=== PATIENT | female | born 1995 | race Caucasian/White ===

== ENCOUNTER 2017-02-12 13:16 | Emergency (ER) | payer OTHER ==
[2017-02-12] MEDS ORDERED: Ondansetron INJ* 2 MG/ML VIAL IV ONE (16:48)
[2017-02-12] MEDS ORDERED: NS 0.9% 1000 ML* 1,000 ML IV ONE (16:48)
[2017-02-12] MEDS ORDERED: Ketorolac INJ* 30 MG/ML 1 ML VIAL IV ONE (16:48)
[2017-02-12] MEDS ORDERED: Morphine INJ* 4 MG/ML 1 ML CARPUJECT IV ONE ×2 (16:48→20:47)
[2017-02-12 17:19] LABS: Hematocrit 39 % (35-47); Hemoglobin 12.8 g/dl (12.0-16.0); Mean Corpuscular HGB Conc 33 g/dl (31-36); Mean Corpuscular Hemoglobin 28 pg (27-31); Mean Corpuscular Volume 83 fL (80-97); Mean Platelet Volume 7 um3 (7.4-10.4); Red Blood Count 4.67 10^6/ul (4.0-5.4); Red Cell Distribution Width 13 % (10.5-15); White Blood Count 9.6 10^3/ul (3.5-10.8)
[2017-02-12 17:33] LABS: ALT 15 U/L (7-52); AST 19 U/L (13-39); Albumin 4.3 g/dL (3.2-5.2); Alkaline Phosphatase 66 U/L (34-104); Anion Gap 7 mmol/L (2-11); BUN/Creatinine Ratio 23.2 (8-20); Blood Urea Nitrogen 13 mg/dL (6-24); C Reactive Protein 1.09 mg/L (< 5.00); CO2 Carbon Dioxide 26 mmol/L (22-32); Calcium 9.2 mg/dL (8.6-10.3); Chloride 103 mmol/L (101-111); EGFR African American 175.7 (>60); EGFR Non-African American 136.7 (>60); Globulin 2.8 g/dL (2-4); Glucose 86 mg/dL (70-100); Potassium 3.7 mmol/L (3.5-5.0); Sodium 136 mmol/L (133-145); Total Protein 7.1 g/dL (6.4-8.9)
[2017-02-12 19:07] LABS: Urine Bacteria Absent (Absent); Urine Bilirubin Negative (Negative); Urine Glucose Negative (Negative); Urine Nitrite Negative (Negative)
--- NOTE | 2017-02-12 20:16 | RAD ---
INDICATION: IUD string cannot be located during pelvic examination. COMPARISON: None. TECHNIQUE: Real-time transabdominal and transvaginal ultrasound examination of the female pelvis including grayscale and Doppler color flow imaging. FINDINGS: Uterus: The uterus is normal in size and echogenicity measuring 6.7 x 3.1 x 4.4 cm. The endometrial stripe is smooth and uniform measuring 4 mm in thickness. The intrauterine device appears to be appropriately located at the fundal height uterus. Ovaries: The right and left ovary measure 2.9 x 1.7 x 2.5 cm and 2.9 x 1.8 x 3.0 cm, respectively. Normal arterial and venous waveforms are identified. Appearance is within normal limits for the patient's age. There is small amount of free fluid in the cul-de-sac. IMPRESSION: Appropriately positioned fundal height intrauterine device according to sonographic criteria.
--- NOTE | 2017-02-12 21:45 | ED ---
Yudy Lofton Rebecca, scribed for Antonina Acevedo MD on 02/12/17 at 1631 . Abdominal Pain/Female - HPI Summary HPI Summary: Pt is a 21 y/o F who presents to ED c/o abdominal pain which she believes is related to her IUD. Pain has been present for 3-4 days and is in the suprapubic region. Pain is currently moderate, ranked 7/10. Sx aggravated by sex, alleviated by nothing. Denies vaginal discharge. Pt had the IUD placed about 1.5 years ago (October 2015) and has not experienced any problems with it. Pt feels positive that the IUD is causing pain. LNMP 2 weeks ago. - History of Current Complaint Chief Complaint: EDAbdPain Stated Complaint: IUD ISSUE Time Seen by Provider: 02/12/17 16:19 Hx Obtained From: Patient Hx Last Menstrual Period: ~07/28/14 Onset/Duration: Lasting Days - 3-4 days, Still Present Severity Currently: Moderate Pain Intensity: 7 Pain Scale Used: 0-10 Numeric Location: Suprapubic Aggravating Factor(s): Other: - Sex Alleviating Factor(s): Nothing Associated Signs and Symptoms: Positive: Negative. Negative: Vaginal Discharge Allergies/Adverse Reactions: Allergies Allergy/AdvReac Type Severity Reaction Status Date / Time Sulfa Antibiotics Allergy Unknown Verified 02/12/17 13:35 Reaction Details PMH/Surg Hx/FS Hx/Imm Hx Endocrine/Hematology History: Denies: Hx Diabetes Cardiovascular History: Denies: Hx Hypercholesterolemia, Hx Hypertension Infectious Disease History: No Infectious Disease History: Denies: Traveled Outside the [place] in Last 30 Days - Family History Known Family History: Positive: Diabetes - grandmother - Social History Occupation: Student Lives: Dormitory/Roommates Alcohol Use: "twice a week ... three or four" Substance Use Type: Reports: None Smoking Status (MU): Never Smoked Tobacco Review of Systems Positive: Abdominal Pain - suprapubic Negative: discharge All Other Systems Reviewed And Are Negative: Yes Physical Exam - Summary Physical Exam Summary: General: Well appearing, no pain distress Skin: Warm, Skin Color Reflects Adequate Perfusion, Dry Eyes: EOMI, ALVAREZ ENT: Pharynx normal, TMs normal Neck: Supple, nontender Respiratory: CTA, breath sounds present, no rhonchi, no wheezes, no rales Cardiovascular: RRR, no murmur, no rub, no gallop, Abdomen: Soft, Tender to palpation in the suprapubic region with no flank pain, Non-distended, no guarding, no rebound Bowel: Present Musculoskeletal: FLOR, No edema Neuro: Sensory/motor intact, A&Ox3, CN intact 2-12 Psych: Affect/mood appropriate Pelvic: Normal, could not find IUD string Triage Information Reviewed: Yes Vital Signs On Initial Exam: Initial Vitals Temp Pulse Resp BP Pulse Ox 98.5 F 85 16 119/73 99 02/12/17 13:31 02/12/17 13:31 02/12/17 13:31 02/12/17 13:31 02/12/17 13:31 Vital Signs Reviewed: Yes Diagnostics - Vital Signs Vital Signs Temp Pulse Resp BP Pulse Ox 02/12/17 15:13 98.3 F 78 15 114/74 100 02/12/17 13:31 98.5 F 85 16 119/73 99 - Laboratory Lab Results: Lab Results 02/12/17 02/12/17 02/12/17 Range/Units 17:00 17:00 18:46 WBC 9.6 (3.5-10.8) 10^3/ul RBC 4.67 (4.0-5.4) 10^6/ul Hgb 12.8 (12.0-16.0) g/dl Hct 39 (35-47) % MCV 83 (80-97) fL MCH 28 (27-31) pg MCHC 33 (31-36) g/dl RDW 13 (10.5-15) % Plt Count 415 (150-450) 10^3/ul MPV 7 L (7.4-10.4) um3 Neut % (Auto) 45.8 (38-83) % Lymph % (Auto) 45.3 (25-47) % Gilchrist % (Auto) 5.5 (1-9) % Eos % (Auto) 2.7 (0-6) % Baso % (Auto) 0.7 (0-2) % Absolute Neuts (auto) 4.4 (1.5-7.7) 10^3/ul Absolute Lymphs (auto) 4.3 (1.0-4.8) 10^3/ul Absolute Monos (auto) 0.5 (0-0.8) 10^3/ul Absolute Eos (auto) 0.3 (0-0.6) 10^3/ul Absolute Basos (auto) 0.1 (0-0.2) 10^3/ul Absolute Nucleated RBC 0 10^3/ul Nucleated RBC % 0 Sodium 136 (133-145) mmol/L Potassium 3.7 (3.5-5.0) mmol/L Chloride 103 (101-111) mmol/L Carbon Dioxide 26 (22-32) mmol/L Anion Gap 7 (2-11) mmol/L BUN 13 (6-24) mg/dL Creatinine 0.56 (0.51-0.95) mg/dL Est GFR ( Amer) 175.7 (>60) Est GFR (Non-Af Amer) 136.7 (>60) BUN/Creatinine Ratio 23.2 H (8-20) Glucose 86 (70-100) mg/dL Calcium 9.2 (8.6-10.3) mg/dL Total Bilirubin 0.30 (0.2-1.0) mg/dL AST 19 (13-39) U/L ALT 15 (7-52) U/L Alkaline Phosphatase 66 (34-104) U/L C-Reactive Protein 1.09 (< 5.00) mg/L Total Protein 7.1 (6.4-8.9) g/dL Albumin 4.3 (3.2-5.2) g/dL Globulin 2.8 (2-4) g/dL Albumin/Globulin Ratio 1.5 (1-3) Beta HCG, Quant < 0.60 mIU/mL Urine Color Yellow Urine Appearance Cloudy Urine pH 7.0 (5-9) Ur Specific [place] 1.017 (1.010-1.030) Urine Protein Negative (Negative) Urine Ketones Negative (Negative) Urine Blood 1+ H (Negative) Urine Nitrate Negative (Negative) Urine Bilirubin Negative (Negative) Urine Urobilinogen Negative (Negative) Ur Leukocyte Esterase Trace H (Negative) Urine WBC (Auto) 1+(6-10/hpf) H (Absent) Urine RBC (Auto) 1+(3-5/hpf) H (Absent) Ur Squamous Epith Cells Present H (Absent) Urine Bacteria Absent (Absent) Urine Glucose Negative (Negative) Result Diagrams: 02/12/17 17:00 10/21/17 17:00 Lab Statement: Any lab studies that have been ordered have been reviewed, and results considered in the medical decision making process. - Ultrasound No standard instances Ultrasound Interpretation: No Acute Changes - Transvaginal US: Appropriately positioned fundal height intrauterine device according to sonographic criteria. ED physician reviewed radiology report and agrees. Ultrasound Interpretation Completed By: Radiologist Re-Evaluation - Re-Evaluation First Eval Re-Evaluation Time: 20:47 Comment: Pt is doing well, discussed results with the pt and will remove the IUD. Second Eval Re-Evaluation Time: 21:25 Comment: Pelvic exam was done. Abdominal Pain Fem Course/Dx - Course Course Of Treatment: 21 yo female with pelvic pain with intercourse, concerned iud is causing the pain and can no longer find the string. labs neg, us shows iud in place, unable to find string on exam to remove iud for her. Pt is referred to rn obgyn - Diagnoses Provider Diagnoses: Pelvic pain Discharge - Discharge Plan Condition: Stable Disposition: HOME Patient Education Materials: Pelvic Pain in Women (ED) Referrals: [facility] [Outside] - 3 Days Paolo Rios MD [Medical Doctor] - 3 Days Non Staff,Doctor [Primary Care Provider] - The documentation as recorded by the Yudy hernandez Rebecca accurately reflects the service I personally performed and the decisions made by me, Antonina Acevedo MD.
[2017-02-12 21:47] VITALS: BP 118/62
== END 2017-02-12 22:27 | disposition home or self-care (01) ==
LOC: ED 13:16
DX: R10.2 Pelvic and perineal pain (principal); R10.9 Unspecified abdominal pain
CPT/HCPCS: 36415; 76830; 80053; 81003; 81015; 84702; 85025; 86140; 87086; 87491; 87591; 96374; 96375; 99283; J1885; J2270; J2405

== ENCOUNTER 2017-05-06 07:31 | Day surgery (SDC) | payer BC ==
[~2017-05-06 07:31] MED LIST: Buffered Lidocaine 0.9% SYRIN* 5 ML/SYR SYRINGE INTRADERM ONE; Famotidine IV* 10 MG/ML 2 ML (20 mg) IV ONE
[2017-05-06] MEDS ORDERED: Famotidine IV* 10 MG/ML 2 ML (20 mg) ONE (08:05)
[2017-05-06] MEDS ORDERED: Lidocaine 2% PF * 5 ML VIAL ONE (09:01)
[2017-05-06] MEDS ORDERED: Midazolam* 1 MG/ML 2 ML VIAL (2 MG) ONE (09:01)
[2017-05-06] MEDS ORDERED: Propofol* 10 MG/ML 20 ML BTL IV PUSH ONE (09:01)
[2017-05-06] MEDS ORDERED: Succinylcholine* 20 MG/ML 10 ML VIAL ONE (09:01)
[2017-05-06] MEDS ORDERED: fentaNYL* 50 MCG/ML 2 ML VIAL (100 MCG VIAL) ONE ×2 (09:01→09:29)
[2017-05-06] MEDS ORDERED: Ondansetron INJ* 2 MG/ML VIAL ONE (09:01)
[2017-05-06] MEDS ORDERED: Dexamethasone IV* 4 MG/ML 1 ML (4 MG) ONE (09:01)
[2017-05-06] MEDS ORDERED: DiMENhydriNATE IV* 50 MG/ML VIAL ONE (09:01)
[2017-05-06] MEDS ORDERED: oxyCODONE TAB* 5 MG TAB PO PRN (09:47)
[2017-05-06] MEDS ORDERED: Acetaminophen TAB* 325 MG PO PRN (09:47)
[2017-05-06] MEDS ORDERED: fentaNYL* 50 MCG/ML 2 ML VIAL (100 MCG VIAL) IV PRN (09:47)
[2017-05-06] MEDS ORDERED: DiMENhydriNATE IV* 50 MG/ML VIAL IV PUSH PRN (09:47)
[2017-05-06] MEDS ORDERED: Naloxone* 0.4 MG/ML 1 ML VIAL IV PRN (09:47)
[2017-05-06] MEDS ORDERED: HYDROcodone/ACET. 7.5/325 LIQ* 15 ML UDC ONE (10:39)
[2017-05-06 11:52] VITALS: BP 136/85
--- NOTE | 2017-05-07 07:29 | OP ---
DATE OF OPERATION: 05/06/17 - [facility] DATE OF : 89 SURGEON: Cali Bolton MD VEHICLE FARE COLLECTOR: None. ANESTHESIA: General. PRE-OPERATIVE DIAGNOSIS: Chronic tonsillitis. POST-OPERATIVE DIAGNOSIS: Chronic tonsillitis. OPERATIVE PROCEDURE: Tonsillectomy and adenoidectomy. ESTIMATED BLOOD LOSS: Negligible. SPECIMENS: Right and left tonsils to Pathology. Adenoids vaporized. DESCRIPTION OF PROCEDURE: This is a 21-year-old woman with history of chronic tonsillitis and adenoiditis who presents for elective tonsillectomy and adenoidectomy. The patient was brought to the operating room and general anesthesia was induced and an oral endotracheal tube was placed. The table was turned. The head wrap was applied. The patient was draped and the time-out was performed. A McIvor mouth gag was used to facilitate exposure of the oropharynx and was suspended from the Melendrez stand. The right tonsil was grasped with a straight Allis forceps, retracted medially and dissected free of its fossa with a coblation device at a setting of 7 and 3. There was minimal bleeding. The left tonsil was removed in an identical fashion, again with minimal bleeding. Once tonsils were removed, the settings on the device were turned up to 9 and 5. The superior and inferior pole regions were then prophylactically cauterized with the bipolar function. A red rubber catheter was then placed through the right nasal cavity, brought out through the mouth and used to retract the soft palate. Redundant adenoid tissue in the region of the choana was vaporized using the coblation device. Once the adenoidectomy was complete, the red rubber catheter was removed and mouth gag was removed after approximately one minute had lapsed the mouth gag was replaced. The tonsillar fossae were inspected. There was no evidence of active bleeding. The orogastric tube was passed into the stomach and the stomach contents were evacuated. The patient was then returned to the care of the anesthesiologist and extubated. [id number]/[facility] #: [id number] MTDD
== END 2017-05-06 11:20 | disposition home or self-care (01) ==
LOC: OR 07:31
PROVIDERS: ATTEND Otolaryngology
DX: J35.01 Chronic tonsillitis (principal); J35.3 Hypertrophy of tonsils with hypertrophy of adenoids; J30.1 Allergic rhinitis due to pollen; J31.2 Chronic pharyngitis
CPT/HCPCS: 81025; 88304; J0330; J1100; J1240; J2250; J2405; J2704; J3010